=== PATIENT | female | born 1950 | race Caucasian/White ===

== ENCOUNTER → 2024-08-30 13:17 | Outpatient (CLI) | payer MEDICARE, SELFPAY | LOC: RESP 13:18 | PROVIDERS: PCP Family Medicine; Referring Provider Internal Medicine; Visit Provider Internal Medicine | DX: R06.02 Shortness of breath (principal); R94.2 Abnormal results of pulmonary function studies; D86.0 Sarcoidosis of lung | CPT/HCPCS: 94060; 94726; 94729 ==